=== PATIENT | female | born 1970 | race Caucasian/White ===

== ENCOUNTER 2019-11-08 17:27 | Inpatient (IN) | payer OTHER, MEDICAID ==
[~2019-11-08] VITALS: Ht 175.3 cm; Wt 109.3 kg
[2019-11-08] MEDS ORDERED: NALOXONE PREFILLED SYRINGE 2 MG/2 ML SYRINGE ONE (17:44)
--- NOTE | 2019-11-08 17:44 | NUR ---
Patient BIB EMS from C/c found down per report EMS start ambu bag pupil pinpoint ,and Narcan given by EMS
[2019-11-08 17:57] LABS: BASOPHILS # (AUTO) 0.1 /CMM (0.0-0.2); BASOPHILS % (AUTO) 0.5 % (0.0-2.0); EOSINOPHILS % (AUTO) 1.1 % (0.0-6.0); HEMATOCRIT 44 % (33-45); HEMOGLOBIN 13.1 g/dL (11.5-14.8); LYMPHOCYTES # (AUTO) 3.4 /CMM (0.8-4.8); LYMPHOCYTES % (AUTO) 26.6 % (20.0-44.0); MEAN CORPUSCULAR HGB CONC 30 g/dl (31.0-36.0); MEAN CORPUSCULAR VOLUME 85 fL (82-100); MONOCYTES # (AUTO) 0.3 /CMM (0.1-1.30); MONOCYTES % (AUTO) 2.2 % (2.0-12.0); NEUTROPHILS # (AUTO) 8.8 /CMM (1.8-8.9); NEUTROPHILS % (AUTO) 69.6 % (43.0-81.0); PLATELET COUNT (AUTO) 179 /CMM (150-450); RED BLOOD CELL COUNT(AUTO) 5.13 MIL/uL (4.0-5.2); WHITE BLOOD COUNT (AUTO) 12.7 K/uL (4.3-11.0)
[2019-11-08] MEDS ORDERED: NALOXONE HCL 0.4 MG/ML AMPUL IV ONE (18:00)
[2019-11-08 18:06] LABS: CALCIUM, SERUM 9.1 mg/dL (8.5-10.1); CARBON DIOXIDE 20 mmol/L (21-32); CHLORIDE 103 mmol/L (98-107); CREATININE 1.7 mg/dL (0.6-1.3); GLUCOSE 331 mg/dL (74-106); SERUM AMMONIA 88 umol/L (11-32); SODIUM SERUM 141 mmol/L (136-145); UREA NITROGEN, BLOOD 14 mg/dL (7-18)
[2019-11-08 18:07] LABS: APPEARANCE,URINE Clear (CLEAR); BILIRUBIN,URINE Negative (NEGATIVE); BLOOD, URINE Trace-lysed Ery/uL (NEGATIVE); COLOR,URINE Yellow (YELLOW); KETONES,URINE Negative (NEGATIVE); LEUKOCYTE ESTERASE ,URINE Negative (NEGATIVE); NITRITE, URINE Negative (NEGATIVE); PH,URINE 5.5 (5.0-8.0); PROTEIN,URINE 100 mg/dl (NEGATIVE); UGLUCOSE 100 MG/DL mg/dL (NEGATIVE); UROBILINOGEN,URINE 0.2 EU/dL (0.2)
[2019-11-08 18:10] LABS: ABG BASE EXCESS -12.5 mmol/L; ABG OXYGEN SATURATION 96.7 % (92.0-98.5); ABG PCO2 44.6 mmHg (35.0-45.0); ABG PH 7.166 (7.350-7.450); ABG PO2 104.5 mmHg (75.0-100.0); AaDO2 100.4 mmHg; COHb 0.7 % (0.5-1.5); MetHb 0.4 % (0.0-1.5); O2Hb 95.6 % (94.0-97.0); SITE, ABG Right Radial; VENT MODE, BG nasal cannula
[2019-11-08 18:20] LABS: ALANINE AMINOTRANSFERASE 76 U/L (12-78); ALBUMIN 3.7 g/dL (3.4-5.0); ALKALINE PHOSPHATASE 108 U/L (46-116); ASPARTATE AMINOTRANSFERASE 72 U/L (15-37); BILIRUBIN,DIRECT 0.1 mg/dL (0.0-0.2); BILIRUBIN,TOTAL 0.3 mg/dL (0.2-1.0)
[2019-11-08] MEDS ORDERED: SODIUM BICARBONATE SYR 50 MEQ/50 ML DISP.SYRIN ONE (18:20)
[2019-11-08 18:22] LABS: ACETAMINOPHEN < 5 ug/ml (10-30); ALCOHOL, BLOOD < 5 mg/dL (0-0)
[2019-11-08 18:27] LABS: THYROID STIMULATING HORMONE 2.202 uIU/mL (0.358-3.74)
--- NOTE | 2019-11-08 18:29 | NUR ---
TO CT with monitor
[2019-11-08] MEDS ORDERED: SODIUM BICARBONATE SYR 50 MEQ/50 ML DISP.SYRIN IV ONE (18:30)
[2019-11-08] MEDS ORDERED: IV NS 0.9% 1,000 ML BAG IV ONE ×2 (18:30)
--- NOTE | 2019-11-08 18:31 | NUR ---
Patient has 14.00 dollors (2-$5, 4-$1). witnessed my EMT Selene Mead & EMT Libia
--- NOTE | 2019-11-08 18:33 | NUR ---
Patient eyes open during suction and moans and called name and she open her eyes
--- NOTE | 2019-11-08 19:24 | NUR ---
Patient response now to hard sternal rub , aware continue to monitor transfer care report to Neil PISANO
--- NOTE | 2019-11-08 19:34 | NUR ---
PAGED [facility].
--- NOTE | 2019-11-08 19:37 | NUR ---
CALLED NURSING SUP FOR ICU BED.
--- NOTE | 2019-11-08 19:42 | NUR ---
NURSING SUP GAVE ICU BED 256.
--- NOTE | 2019-11-08 20:02 | NUR ---
REPORT GIVEN TO NAEEM PISANO FOR ERIC.
--- NOTE | 2019-11-08 20:15 | NUR ---
admitted patient from ER,initially awake on arrival while being transferred to bed from stretcher but not talking ,not following commands, then easily falls back to sleep,(drowsiness) as soon as patient in bed. Breathing very shallow but regular (RR= 8-10),not in any respiratory distress,saturating 100 % on nasal cannula 2 L/min. Will closely monitor respiratory status. [place],was given Narcan in the field with slight response. while in ER was given again Narcan x 2 with only slight arousable, still lethargic and not talking.Was also given 2 L NSS bolus and 1 amp NAHCO3 ( PH=7.16). Urine tox + Coccaine and Opiates.
[2019-11-08 20:25] VITALS: BP 123/66
[2019-11-08 20:30] VITALS: BP 116/49
[2019-11-08] MEDS ORDERED: MAGNESIUM HYDROXIDE 30 ML UDC PO PRN (20:30)
[2019-11-08] MEDS ORDERED: IV NS 0.9% 1,000 ML IV PRN (20:30)
[2019-11-08] MEDS ORDERED: ONDANSETRON HCL/PF 4 MG/2 ML VIAL IVP PRN (20:30)
[2019-11-08] MEDS ORDERED: MAG HYDROX/AL HYDROX/SIMETH 30 ML UDC PO PRN (20:30)
[2019-11-08] MEDS ORDERED: ACETAMINOPHEN 325 MG TABLET PO PRN (20:30)
[2019-11-08] MEDS ORDERED: Z GUARD REMEDY 2 OZ OINT TP PRN (20:30)
[2019-11-08] MEDS ORDERED: HYDROCODONE/APAP 5/325MG 1 EACH TABLET PO PRN (20:30)
[2019-11-08 21:00] VITALS: BP 118/74
[2019-11-08 21:45] LABS: BACTERIA,URINE Few /HPF (None Seen); RBC,URINE 2-3/HPF /HPF (0-2); SQUAMOUS EPITHELIAL CELL,UR Few /HPF (None Seen); URINE AMORPHOUS URATE Few /HPF (None Seen); WBC,URINE 0-2 /HPF (0-3)
[2019-11-08 22:00] VITALS: BP 122/66
--- NOTE | 2019-11-08 22:00 | NUR ---
Still lethargic,awakens but still not talking,easily falls back to sleep. saturating well still breathing shallow.
[2019-11-08 23:00] VITALS: BP 118/68
--- NOTE | 2019-11-08 23:30 | NUR ---
awake,alert, conversing.does not remember anything ,remembers being in the mall but that's all she can remember.Admits to taking Oxy .
[2019-11-09] VITALS (21 sets, daily range): BP systolic 106–135; BP diastolic 49–76
--- NOTE | 2019-11-09 02:00 | NUR ---
Stable,not in any distress, sleeping most of the time but now awake,and alert.
[2019-11-09 04:23] LABS: BASOPHILS # (AUTO) 0.1 /CMM (0.0-0.2); BASOPHILS % (AUTO) 0.5 % (0.0-2.0); HEMATOCRIT 36 % (33-45); HEMOGLOBIN 11.7 g/dL (11.5-14.8); LYMPHOCYTES # (AUTO) 1.8 /CMM (0.8-4.8); MEAN CORPUSCULAR HGB CONC 32 g/dl (31.0-36.0); MEAN CORPUSCULAR VOLUME 81 fL (82-100); NEUTROPHILS # (AUTO) 11.8 /CMM (1.8-8.9); NEUTROPHILS % (AUTO) 80.5 % (43.0-81.0); PLATELET COUNT (AUTO) 178 /CMM (150-450); RED BLOOD CELL COUNT(AUTO) 4.48 MIL/uL (4.0-5.2); WHITE BLOOD COUNT (AUTO) 14.6 K/uL (4.3-11.0)
[2019-11-09 04:42] LABS: CREATININE 0.9 mg/dL (0.6-1.3); MAGNESIUM 1.9 mg/dL (1.8-2.4); PHOSPHORUS 4.3 mg/dL (2.5-4.9); POTASSIUM 4.1 mmol/L (3.5-5.1)
--- NOTE | 2019-11-09 06:00 | NUR ---
Remains stable,awake,alert,not in any distress.Denies any chest pain .For 3rd draw of Troponine this am. @ 0800
--- NOTE | 2019-11-09 07:15 | NUR ---
RN INITIAL NOTES PT A/OX4. ON 02 VIA NC. NO RESPIRATORY DISTRESS NOTED. NO SOB NOTED. DENIES ANY PAIN. IV LINES IN PLACE. IVF INFUSING. FC IN PLACE. NO HEMATURIA NOTED. WILL CONTINUE TO MONITOR
[2019-11-09] MEDS: ASPIRIN 81 MG TAB.CHEW PO SCH (08:29)
--- NOTE | 2019-11-09 10:00 | NUR ---
RN NOTES SEEN AND EXAMINED BY MAHI CROWELL. AWARE OF LAB VALUES AND IMAGING RESULT. TROPONIN, 1.044. NO ORDER MADE. PT A/OX4. NO RESPIRATORY DISTRESS NOTED. NO SOB NOTED. DENIES ANY PAIN. PT CLEARED FOR DOWNGRADE. WILL CONTINUE TO MONITOR
--- NOTE | 2019-11-09 12:32 | NUR ---
rehabilitation services counselor consult requested for unintentional drug overdose. Pt is a 49 year old female who was admitted to [facility] for altered mental status. Pt was laying down in her bed and was oriented x 4 (person, place, time, and situation). Pt states that she is a single mother and lives with her two minor children, ages 16 and [address] [place] [address], [address], in [place], [place], [address]; [phone]. 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 Pt states she has worked for [employer] for the past 12 years. Pt denied substance abuse of alcohol, cigarettes, and drugs. However, per her chart, pt unintentionally overdosed on cocaine and admitted to taking opioids. Pt declined referrals to substance abuse treatment, but SW provided the following referrals in case pts motivation changes in the future. JEWELL provided the following substance abuse treatment program referrals to pt: [facility] [id number] [place] [address]. [place] [address]; , [facility] [address] [facility] [place] [address]; ; and [facility] ([phone]). Pt denies suicidal and homicidal ideation at this time. Pt denies auditory and visual hallucinations at this time. Pt states her adult son will be picking her up at discharge and she will be returning home. No other services needed at this time. SW is available if needed.
--- NOTE | 2019-11-09 13:40 | NUR ---
RN NOTES PT TRANSFERRED TO ROOM 309-1. PT A/OX4, ON ROOM AIR. NO RESPIRATORY DISTRESS NOTED. NO SOB NOTED. DENIES ANY PAIN. IN STABLE CONDITION. NORRIS BEAL TOOK OVER PT'S CARE.
--- NOTE | 2019-11-09 13:50 | NUR ---
WHITE SHOE EXAMINER NOTES RECEIVED PATIENT FROM ICU. PATIENT WAS ORIENTED TO ROOM AND PLACED ON TELE MONITOR. CALL LIGHT IS WITHIN REACH. APPEARS TO BE COMFORTABLE, NO COMPLAINTS OF PAIN. BED IN LOWEST LOCKED POSITION WITH SIDE RAILS UP, SEMI FOWLERS. PATIENT IS ON ROOM AIR, NO SOB/ ACUTE RESPIRATORY DISTRESS NOTED. PATIENT IS A/O X4. WILL CONTINUE TO MONITOR.
--- NOTE | 2019-11-09 18:28 | NUR ---
DIRECTOR COLLEGE CLOSING NOTES PATIENT IS LAYING IN BED WATCHING TV. CALL LIGHT IS WITHIN REACH. PATIENT IS A/O X4. IV SITES ARE INTACT AND PATENT. BED IS IN LOWEST LOCKED POSITION WITH SIDE RAILS UP, SEMI FOWLERS. WILL ENDORSE REPORT TO DIETITIAN.
--- NOTE | 2019-11-09 23:03 | NUR ---
Met with patient at bedside, she lives with her two children at [address] [place] [address], [address] [place], [place], [address]; [phone]. States she works for the [employer] program. She is ambulatory and independent with adl's. account services manager provided substance abuse treatment program referrals to pt: [facility] [address] [facility] [place] [address]; , [facility] [address] [facility] [place] [address]; ; and [facility] ([phone]). Pt denies suicidal and homicidal ideation at this time. Pt denies auditory and visual hallucinations at this time. Pt states her adult son will be picking her up at discharge and she will be returning home. Addendum: 11/09/19 at 2305 by ANABELL EATON RN Amended: Links added.
[2019-11-10] VITALS: BP 121/62
[2019-11-10 04:00] VITALS: BP 119/58
--- NOTE | 2019-11-10 06:40 | NUR ---
SUPERINTENDENT POWER NOTES AWAKE & RESPONSIVE. NOT IN ANY DISTRESS. NO SOB NOTED. DENIES ANY PAIN OR DISCOMFORT AT THIS TIME. ON TELE SR @ 74 WITH IV-HL PATENT & INTACT. MONITORED ACCORDINGLY. CALL LIGHT WITHIN REACH. BED IN LOWEST POSITION. SR UP X 2 FOR SAFETY. WILL ENDORSE TO NEXT SHIFT.
[2019-11-10 06:54] LABS: CALCIUM, SERUM 8.4 mg/dL (8.5-10.1); CREATININE 0.8 mg/dL (0.6-1.3); POTASSIUM 3.4 mmol/L (3.5-5.1)
[2019-11-10 06:57] LABS: BASOPHILS # (AUTO) 0.1 /CMM (0.0-0.2); BASOPHILS % (AUTO) 0.6 % (0.0-2.0); EOSINOPHILS % (AUTO) 1.7 % (0.0-6.0); HEMATOCRIT 34 % (33-45); LYMPHOCYTES # (AUTO) 2.2 /CMM (0.8-4.8); LYMPHOCYTES % (AUTO) 26.4 % (20.0-44.0); MEAN CORPUSCULAR HGB CONC 32 g/dl (31.0-36.0); MEAN CORPUSCULAR VOLUME 80 fL (82-100); MONOCYTES # (AUTO) 0.6 /CMM (0.1-1.30); MONOCYTES % (AUTO) 7.8 % (2.0-12.0); NEUTROPHILS # (AUTO) 5.3 /CMM (1.8-8.9); NEUTROPHILS % (AUTO) 63.5 % (43.0-81.0); PLATELET COUNT (AUTO) 154 /CMM (150-450); RED BLOOD CELL COUNT(AUTO) 4.23 MIL/uL (4.0-5.2); WHITE BLOOD COUNT (AUTO) 8.4 K/uL (4.3-11.0)
[2019-11-10 07:45] LABS: IRON, SERUM 60 ug/dl (50-175); TOTAL IRON BINDING CAPACITY 325 ug/dl (250-450)
--- NOTE | 2019-11-10 08:00 | NUR ---
FIRE PREVENTION OFFICER OPENING NOTES Received Patient asleep and resting in bed. A/O x 4. VS stable with no acute distress. Breathing even and unlabored on 3LPM via NC with no respiratory distress. Denies pain. No signs and symptoms of pain. Telemonitor in place and patent reading SR with HR-73. 20g PIV on Right External Jugular clean, intact, patent and flushing well. 20g PIV on LFA clean, intact, patent and flushing well. Safety precautions in place. Bed locked and set to lowest position with side rails x 2 up. All needs rendered at this time. Call light within reach. Will continue to monitor.
[2019-11-10] MEDS: ASPIRIN 81 MG TAB.CHEW PO SCH (08:28)
[2019-11-10] MEDS: ATORVASTATIN 10 MG TABLET PO SCH (08:29)
[2019-11-10 08:36] VITALS: BP 129/81
[2019-11-10 08:52] LABS: CHOLESTEROL 147 mg/dL (<200); FERRITIN 170 ng/mL (8-388); HDL CHOLESTEROL 71 mg/dL (40-60); LDL 65 mg/dL (0-99); TRIGLYCERIDES 42 mg/dL (30-150)
[2019-11-10] MEDS ORDERED: ASPIRIN 81 MG TAB.CHEW PO SCH (09:00)
--- NOTE | 2019-11-10 09:55 | NUR ---
TECHNICAL DOCUMENTATION SPECIALIST NOTES Obtained consent for CT Angiogram of the Heart at this time. Explained risks and benefits of procedure. Patient agreed. Signed consent placed in chart. Patient in stable condition. Will continue to monitor.
--- NOTE | 2019-11-10 10:21 | NUR ---
BRAZING MACHINE TENDER NOTES Patient taken to Radiology for CT Angiogram of the Heart at this time. Patient in stable condition.
[2019-11-10] MEDS ORDERED: POTASSIUM CHLORIDE 20 MEQ TAB.PRT.SR PO ONE (10:30)
[2019-11-10] MEDS ORDERED: IOHEXOL-350 100 ML VIAL IV ONE (10:33)
[2019-11-10] MEDS ORDERED: IV NS 0.9% 250 ML IV ONE (10:33)
[2019-11-10] MEDS ORDERED: METOPROLOL TARTRATE INJ 5 MG/5 ML AMPUL ONE (10:37)
--- NOTE | 2019-11-10 10:52 | NUR ---
RN NOTES: CTA PROCEDURE: Patient awake and alert x4, Patient verbalizes understanding regarding CTA, Patient signed consent. IV line started on right AC g18 patent and intact. S/p CTA patient able to tolerate the procedure without any discomfort. Patient transferred back to her room in stable condition, report given to Jamila PISANO.
--- NOTE | 2019-11-10 10:59 | NUR ---
FOOD COUNTER WORKER NOTES Patient returned from Radiology at this time. Patient in stable condition. Will continue to monitor.
[2019-11-10] MEDS ORDERED: METOPROLOL TARTRATE INJ 5 MG/5 ML AMPUL IVP PRN (11:00)
[2019-11-10] MEDS ORDERED: NITROGLYCERIN 0.4 MG/TAB BOTTLE SL PRN (11:00)
[2019-11-10] MEDS: IV NS 0.9% 1,000 ML IV PRN ×2 (11:08→21:51)
[2019-11-10] MEDS: CEFTRIAXONE 1 G in IV D5W 50 ML IV SCH (14:33)
[2019-11-10] MEDS: AZITHROMYCIN 500 MG in IV D5W 250 ML IV SCH (15:25)
[2019-11-10 16:31] VITALS: BP 131/73
--- NOTE | 2019-11-10 18:49 | NUR ---
MARGARINE CHURN OPERATOR CLOSING NOTES Received Patient asleep and resting in bed. A/O x 4. VS stable with no acute distress. Breathing even and unlabored on 3LPM via NC with no respiratory distress. Denies pain. No signs and symptoms of pain. Telemonitor in place and patent reading SR with HR-76. 18g PIV on RFA clean, intact, patent and flushing well with NS infusing at 125ml/hr. Safety precautions in place. Bed locked and set to lowest position with side rails x 2 up. All needs rendered at this time. Call light within reach. Will endorse plan of care to oncoming shift.
--- NOTE | 2019-11-10 19:30 | NUR ---
MS RN NOTES RECEIVED ON BED A/O X4,BREATHING REGULAR,NOT IN ANY FORM OF DISTRESS,DENIES DISCOMFORTS AT THE MOMENT,IVF NS AT 125ML/HR RATE IN PROGRESS ON RIGHT AC SALINE LOCK VIA IV PUMP,SITE PATENT.NO INFILTRATION NOTED.CALL LIGHT IN REACH,NEEDS ANTICIPATED.
[2019-11-10 20:09] VITALS: BP 122/66
[2019-11-11] MEDS: IV NS 0.9% 1,000 ML IV PRN (06:14)
--- NOTE | 2019-11-11 06:33 | NUR ---
MS RN NOTES ON BED THIS TIME.ABLE TO AMBULATE TO THE BATHROOM WITH STANDBY ASSIST.DENIES DISCOMFORTS.IVF IN POSSIBLE D/C HOME TODAY POST IV ANTIBIOTIC.IN NO ACUTE DISTRESS.WILL ENDORSE TO DAY NURSE FOR ERIC.
[2019-11-11 07:27] LABS: BASOPHILS % (AUTO) 0.7 % (0.0-2.0); EOSINOPHILS % (AUTO) 3.3 % (0.0-6.0); HEMATOCRIT 36 % (33-45); HEMOGLOBIN 11.5 g/dL (11.5-14.8); LYMPHOCYTES # (AUTO) 2.4 /CMM (0.8-4.8); LYMPHOCYTES % (AUTO) 32.8 % (20.0-44.0); MEAN CORPUSCULAR HGB CONC 32 g/dl (31.0-36.0); MEAN CORPUSCULAR VOLUME 80 fL (82-100); MONOCYTES # (AUTO) 0.6 /CMM (0.1-1.30); MONOCYTES % (AUTO) 7.9 % (2.0-12.0); NEUTROPHILS % (AUTO) 55.3 % (43.0-81.0); PLATELET COUNT (AUTO) 139 /CMM (150-450); RED BLOOD CELL COUNT(AUTO) 4.45 MIL/uL (4.0-5.2); WHITE BLOOD COUNT (AUTO) 7.2 K/uL (4.3-11.0)
[2019-11-11 07:29] LABS: CALCIUM, SERUM 8.7 mg/dL (8.5-10.1); CREATININE 0.7 mg/dL (0.6-1.3); POTASSIUM 3.8 mmol/L (3.5-5.1)
--- NOTE | 2019-11-11 07:40 | NUR ---
TELE/RN OPENING NOTES RECEIVED PATIENT LYING ON BED AWAKE. ALERT AND ORIENTED X4. DENIES PAIN AT THIS TIME. NO SOB NOTED. IVF OF NS 1L 125ML/HR ON AND INFUSING WELL. SAFETY MEASURES IN PLACE, CALL LIGHT WITHIN EASY REACH, BED IN LOWEST POSITION, SIDE RAILS UP X2. WILL CONTINUE TO MONITOR
[2019-11-11 08:00] VITALS: BP 128/76
[2019-11-11] MEDS: ATORVASTATIN 10 MG TABLET PO SCH (08:20)
[2019-11-11] MEDS: ASPIRIN 81 MG TAB.CHEW PO SCH (08:21)
[2019-11-11] MEDS ORDERED: LEVO750T21 PO (10:40)
[2019-11-11] MEDS: CEFTRIAXONE 1 G in IV D5W 50 ML IV SCH (12:24)
[2019-11-11] MEDS: AZITHROMYCIN 500 MG in IV D5W 250 ML IV SCH (13:12)
--- NOTE | 2019-11-11 16:08 | NUR ---
MS/RN NOTES PATIENT IS ALERT AND ORIENTED X4. DENIES ANY PAIN AT THIS TIME. IN ROOM AIR AND SATURATION IS AT 100%. RESPIRATIONS REGULAR AND UNLABORED. THE PATIENT IN NO APPARENT DISTRESS. SEEN AND EXAMINED BY MD WITH ORDERS MADE AND CARRIED OUT. ALL DUE MED WAS GIVEN ORDERED. PATIENT WAS GIVEN DISCHARGED INSTRUCTIONS AND PATIENT VERBALIZED UNDERSTANDING. BELONGINGS FORM AND DISCHARGED FORM WAS SIGN BY THE PATIENT. THE PATIENT LEFT THE HOSPITAL IN STABLE CONDITION, ACCOMPANIED BY KARISSA THE SON ON A PRIVATE.
== END 2019-11-11 15:45 | disposition home or self-care (01) | DRG 917 ==
LOC: ER 17:29 → ICU 19:51 → TELE 11-09 13:33 → MED 11-11 09:06
PROVIDERS: ADMIT Internal Medicine; ATTEND Nurse Practitioner Acute Care
DX: T40.5X1A Poisoning by cocaine, accidental (unintentional), initial encounter (principal); E11.00 Type 2 diabetes mellitus with hyperosmolarity without nonketotic hyperglycemic-hyperosmolar coma (NKHHC); G92 Toxic encephalopathy; N17.0 Acute kidney failure with tubular necrosis; I21.4 Non-ST elevation (NSTEMI) myocardial infarction; J15.9 Unspecified bacterial pneumonia; E87.2 Acidosis; T40.2X1A Poisoning by other opioids, accidental (unintentional), initial encounter; T39.1X1A Poisoning by 4-Aminophenol derivatives, accidental (unintentional), initial encounter; Y92.89 Other specified places as the place of occurrence of the external cause; E86.0 Dehydration; G89.29 Other chronic pain; E86.9 Volume depletion, unspecified
CPT/HCPCS: 36415; 36600; 70450-TC; 71045-TC; 75574; 80048-TC; 80061-TC; 80076-TC; 80305; 81000-TC; 82140-TC; 82728-TC; 82962-TC; 83540-TC; 83735-TC; 84100-TC; 84443-TC; 84484-TC; 84703-TC; 85025-TC; 85730-TC; 87081-TC; 93307-TC; G0378; G0480; J0456; J0696; J2310; J2405; J3490; J7030; J7050; J7060; Q9967